=== PATIENT | female | born 1980 | race Caucasian/White ===

== ENCOUNTER → 2017-04-26 | Outpatient (CLI) | payer OTHER ==
[~2017-04-26] MED LIST: ACET325 PO; ACYC200 PO; ALBU90OI INH; AZIT250 PO; BIRTH CONTROL PILL; CYCL10 PO; DIPATR PO; HYDACE5; HYDACE5 PO; IBUP400 PO; LABE100 PO; LACT10SY PO; LORA1 PO; METF500; MULVITMINE PO; OXYACE5T PO; PROM25 PO; PROPRANOLOL 120 MG; RANI150; [UNRECOGNIZED DRUG - OTHER]; [UNRECOGNIZED DRUG - REMARK]
[2017-04-30 20:45] LABS: Cotinine, Urine 8 ng/mL (<5); Nicotine, Urine 2 ng/mL (<2)
== END | disposition home or self-care (01) ==
LOC: LAB 14:13
PROVIDERS: Hospitalist
DX: M51.16 Intervertebral disc disorders with radiculopathy, lumbar region (principal); F17.210 Nicotine dependence, cigarettes, uncomplicated
CPT/HCPCS: G0480

== ENCOUNTER → 2017-06-14 | Outpatient (CLI) | payer OTHER | LOC: LAB 17:51 → LAB SHORT 17:51 | DX: F17.210 Nicotine dependence, cigarettes, uncomplicated (principal); M51.16 Intervertebral disc disorders with radiculopathy, lumbar region ==

== ENCOUNTER → 2017-10-27 | Outpatient (CLI) | payer MEDICARE, OTHER ==
[2017-10-30 05:14] LABS: COTININE Negative ng/mL (Cutoff=300)
== END | disposition home or self-care (01) ==
LOC: LAB SHORT 10:18 → LAB 10:18
PROVIDERS: Hospitalist
DX: M54.16 Radiculopathy, lumbar region (principal)

== ENCOUNTER 2023-09-07 03:01 | Emergency (ER) | payer MEDICARE, OTHER ==
[~2023-09-07] VITALS: Ht 170.2 cm; Wt 113.4 kg
[2023-09-07] MEDS ORDERED: BUPRENORPHIN-N1 EAC1 SL (05:07)
[2023-09-07 05:16] VITALS: BP 142/65
== END 2023-09-07 05:17 | disposition home or self-care (01) ==
LOC: ER 03:01
DX: F11.93 Opioid use, unspecified with withdrawal (principal); F17.200 Nicotine dependence, unspecified, uncomplicated; Z88.0 Allergy status to penicillin; Z88.6 Allergy status to analgesic agent; Z88.5 Allergy status to narcotic agent; Z88.8 Allergy status to other drugs, medicaments and biological substances
CPT/HCPCS: 99283

== ENCOUNTER → 2024-11-16 | Outpatient (CLI) | payer MEDICARE, OTHER ==
[~2024-11-16] MED LIST changes: +BUPRENORPHIN-N1 EAC1 SL
== END ==
LOC: LAB SHORT 17:36 → LAB 17:36
PROVIDERS: Physician Assistant
DX: Z12.4 Encounter for screening for malignant neoplasm of cervix (principal)
CPT/HCPCS: 87624; G0145